=== PATIENT | male | born 1955 | race Caucasian/White ===

== ENCOUNTER 2019-03-31 11:44 | Emergency (ER) | payer BC ==
[~2019-03-31] VITALS: Ht 154.9 cm; Wt 66.7 kg
--- NOTE | 2019-03-31 11:48 | NUR ---
Patient to ER bed 06 to gown for evaluation. Side rails up. Report given to Nesha PELLETIER.
--- NOTE | 2019-03-31 11:52 | NUR ---
pt reports abd pain 2/10 starting at 4 AM and vomiting x3. in no acute distress.
[2019-03-31 11:57] VITALS: BP_SYST 121
--- NOTE | 2019-03-31 12:09 | NUR ---
ER at bedside examining patient.
--- NOTE | 2019-03-31 12:20 | NUR ---
Patient ambulated to radiology via , accompanied by Kiyon.
--- NOTE | 2019-03-31 12:28 | NUR ---
pt returned from radiology, accompanied by staff.
[2019-03-31] MEDS ORDERED: NACL 0.9% 1,000 ML IV ONE (13:00)
[2019-03-31] MEDS ORDERED: ONDANSETRON HCL 4 MG/2 ML VIAL IVP ONE ×2 (13:00→15:30)
--- NOTE | 2019-03-31 13:23 | NUR ---
# 22 gauge angiocath placed to LAC. Use of asceptic technique. Opsite placed over site. Blood return noted. Blood for lab drawn from site. Flushed with 10 cc of normal saline. No evidence of infiltration noted. Patient tolerated well.
[2019-03-31 13:38] LABS: BASOPHILS % (AUTO) 0.1 % (0.0-2.0); HEMATOCRIT 45.9 % (36-54); HEMOGLOBIN 15.4 g/dL (14.0-18.0); LYMPHOCYTES # (AUTO) 0.7 K/uL (1.0-5.5); LYMPHOCYTES % (AUTO) 6.5 % (20.5-51.5); MEAN CORPUSCULAR HEMOGLOBIN 31 pg (27-31); MEAN CORPUSCULAR HGB CONC 34 % (32-36); MEAN CORPUSCULAR VOLUME 92 fL (79.0-98.0); MONOCYTES # (AUTO) 0.2 K/uL (0.0-1.0); MONOCYTES % (AUTO) 2.4 % (1.7-9.3); NEUTROPHILS # (AUTO) 9.4 K/uL (1.8-7.7); PLATELET COUNT (AUTO) 224 K/uL (130-430); RED BLOOD CELL COUNT(AUTO) 5.01 MIL/uL (4.2-6.2); RED CELL DISTRIBUTION WIDTH 13.5 % (9.0-15.0); WHITE BLOOD COUNT (AUTO) 10.4 K/uL (4.8-10.8)
[2019-03-31 13:49] LABS: CALCIUM 9.3 mg/dL (8.4-11.0); CHLORIDE 103 mmol/L (98-107); CREATININE 1.14 mg/dL (0.55-1.30); GLUCOSE 107 mg/dL (70-99); POTASSIUM 4.4 mmol/L (3.5-5.1); SODIUM SERUM 132 mmol/L (136-145); UREA NITROGEN, BLOOD 15 mg/dL (8-21)
[2019-03-31 13:52] LABS: ANION GAP < 3 (5-15); GFR AFRICAN AMERICAN 84 mL/min (>90)
[2019-03-31 13:55] LABS: ALANINE AMINOTRANSFERASE 25 U/L (12-78); ALBUMIN 4.3 g/dL (3.4-4.8); ASPARTATE AMINOTRANSFERASE 20 U/L (10-37); LIPASE 150 U/L (73-393); TOTAL BILIRUBIN 0.8 mg/dL (0.0-1.0)
--- NOTE | 2019-03-31 14:04 | NUR ---
med recon updated. Pt does not take any home meds.
--- NOTE | 2019-03-31 14:08 | NUR ---
belongings inventory done
[2019-03-31 14:20] LABS: BILIRUBIN,URINE NEGATIVE (NEGATIVE); BLOOD, URINE NEGATIVE (NEGATIVE); CLARITY/URINE CLEAR (CLEAR); COLOR,URINE YELLOW (YELLOW); GLUCOSE,URINE NEGATIVE (NEGATIVE); KETONES,URINE 2+ (NEGATIVE); LEUKOCYTE ESTERASE ,URINE NEGATIVE (NEGATIVE); NITRITE, URINE NEGATIVE (NEGATIVE); PROTEIN URINE TRACE (NEGATIVE)
[2019-03-31 14:41] LABS: BACTERIA,URINE RARE /HPF (None Seen); MUCUS,URINE None Seen /LPF (None Seen); RBC,URINE NONE SEEN /HPF (0-3); WBC,URINE NONE SEEN /HPF (0-3)
--- NOTE | 2019-03-31 15:00 | NUR ---
medicated the pt w/ Mag Citrate per MD order.
[2019-03-31] MEDS ORDERED: MAGNESIUM CITRATE 300 ML ORAL SOLUTION PO ONE (15:30)
--- NOTE | 2019-03-31 16:25 | NUR ---
Pt assisted to bedside commode.
--- NOTE | 2019-03-31 17:31 | NUR ---
Note undone in EDM - 03/31/19 at 1741 by EPHRAIM Patient given written and verbal discharge instructions and verbalizes understanding. ER discussed with patient the results and treatment provided. Patient in stable condition. ID arm band removed. IV catheter removed intact and dressing applied, no active bleeding.Rx of mineral oil and Lactulose given. Patient educated on pain management and to follow up with PMD. Pain Scale 0/10.Opportunity for questions provided and answered. Medication side effect fact sheet provided.
--- NOTE | 2019-03-31 17:40 | NUR ---
Patient given written and verbal discharge instructions and verbalizes understanding. ER MD discussed with patient the results and treatment provided. Patient in stable condition. ID arm band removed. IV catheter removed intact and dressing applied, no active bleeding.Rx of Lactulose and Mineral oil given. Patient educated on pain management and to follow up with PMD. Pain Scale 0/10.Opportunity for questions provided and answered. Medication side effect fact sheet provided.
[2019-03-31 17:43] VITALS: BP_SYST 123
== END 2019-03-31 17:40 | disposition home or self-care (01) ==
LOC: SED 11:44
DX: K59.00 Constipation, unspecified (principal); R11.10 Vomiting, unspecified
CPT/HCPCS: 36415; 71045; 74021; 74176; 80053; 81000; 83605; 83690; 84484; 85025; 85610; 85730; 87040; 87086; 93005; 96361; 96374; 96376; 99284; J2405; J7030

== ENCOUNTER 2021-04-28 00:25 | Inpatient (IN) | payer BC, SELFPAY ==
[~2021-04-28] VITALS: Ht 180.3 cm; Wt 65.8 kg
[2021-04-28 00:35] VITALS: BP_SYST 121
--- NOTE | 2021-04-28 00:45 | NUR ---
Patient to ER bed 7 to gown for evaluation. Side rails up.
--- NOTE | 2021-04-28 00:48 | NUR ---
Dr. [facility] pt eval
--- NOTE | 2021-04-28 00:49 | NUR ---
PT BIB FAMILY TO ED C/O +LOWER ABDOMINAL PAIN WITH N/V SINCE THURSDAY DENIES DIARRHEA, NO PAIN MEDS TAKEN VSS NO S/S OF ACUTE DISTRESS RESTING ON GURNEY RAILS UP
[2021-04-28] MEDS ORDERED: KETOROLAC TROMETHAMINE 30 MG VIAL IVP ONE (01:15)
[2021-04-28] MEDS ORDERED: ONDANSETRON HCL 4 MG/2 ML VIAL IVP ONE (01:15)
[2021-04-28] MEDS ORDERED: NACL 0.9% 1,000 ML IV ONE ×2 (01:15→02:30)
--- NOTE | 2021-04-28 01:26 | NUR ---
Pt went to and from Radiology, well tolerated
[2021-04-28 01:30] LABS: BILIRUBIN,URINE NEGATIVE (NEGATIVE); CLARITY/URINE CLEAR (CLEAR); COLOR,URINE YELLOW (YELLOW); GLUCOSE,URINE NEGATIVE (NEGATIVE); KETONES,URINE 3+ (NEGATIVE); LEUKOCYTE ESTERASE ,URINE NEGATIVE (NEGATIVE); NITRITE, URINE NEGATIVE (NEGATIVE); PROTEIN URINE NEGATIVE (NEGATIVE); UROBILINOGEN,URINE 0.2 (0.2-1.0)
--- NOTE | 2021-04-28 01:34 | NUR ---
IV meds well tolerated
[2021-04-28 01:50] LABS: CALCIUM 10.1 mg/dL (8.4-11.0); CREATININE 1.64 mg/dL (0.55-1.30)
[2021-04-28 01:50] LABS: BLOOD, URINE TRACE (NEGATIVE)
[2021-04-28 01:56] LABS: ALBUMIN 4.3 g/dL (3.4-4.8); TOTAL BILIRUBIN 1.2 mg/dL (0.0-1.0)
[2021-04-28] MEDS ORDERED: cefTRIAXone 1 GM IVPB PREMIX 50 ML IV ONE (02:15)
[2021-04-28 02:21] LABS: BASOPHILS % (AUTO) 0.1 % (0.0-2.0); HEMATOCRIT 45.2 % (36-54); HEMOGLOBIN 15.1 g/dL (14.0-18.0); LYMPHOCYTES # (AUTO) 0.8 K/uL (1.0-5.5); LYMPHOCYTES % (AUTO) 6.7 % (20.5-51.5); MEAN CORPUSCULAR HEMOGLOBIN 30 pg (27-31); MEAN CORPUSCULAR HGB CONC 34 % (32-36); MEAN CORPUSCULAR VOLUME 90 fL (79.0-98.0); MONOCYTES # (AUTO) 0.7 K/uL (0.0-1.0); MONOCYTES % (AUTO) 6.1 % (1.7-9.3); NEUTROPHILS # (AUTO) 10.3 K/uL (1.8-7.7); NEUTROPHILS % (AUTO) 87.1 % (40.0-70.0); PLATELET COUNT (AUTO) 213 K/uL (130-430); RED BLOOD CELL COUNT(AUTO) 5.04 MIL/uL (4.2-6.2); RED CELL DISTRIBUTION WIDTH 13.3 % (9.0-15.0); WHITE BLOOD COUNT (AUTO) 11.9 K/uL (4.8-10.8)
--- NOTE | 2021-04-28 03:20 | NUR ---
Patient will be admitted to care of WILLIAM. Admitted to TELE unit. PENDING ROOM ASSIGNMENT. Belongings list completed. Complete and up to date summary report printed. SBAR report to be given at bedside with opportunity for questions.
--- NOTE | 2021-04-28 03:21 | NUR ---
Medication reconciliation completed with information provided by PATIENT. PT DENIES TAKING ANY MEDICATION AT HOME.
--- NOTE | 2021-04-28 03:24 | NUR ---
Patient's code status is FULL CODE paperwork completed and placed in chart.
[2021-04-28] MEDS ORDERED: HYDROcodone/ACETAMIN 5-325 MG TAB (NORCO/ VICODIN) PO PRN (03:45)
[2021-04-28] MEDS: NACL 0.9% 1,000 ML IV SCH ×3 (04:19→18:17)
--- NOTE | 2021-04-28 04:19 | NUR ---
COVID SWAB COLLECTED AND SENT TO LAB.
--- NOTE | 2021-04-28 05:37 | NUR ---
Patient resting quietly. No acute distress noted. Vital signs within normal range.
--- NOTE | 2021-04-28 07:00 | NUR ---
Assumed care of pt from franklin PELLETIER. Pt stable awaiting telemetry bed on unit.
--- NOTE | 2021-04-28 08:00 | NUR ---
Provided breakfast tray. Pt sat up at bedside.
[2021-04-28] MEDS: TAMSULOSIN HCL 0.4 MG CAP PO SCH (09:17)
--- NOTE | 2021-04-28 09:55 | NUR ---
Pt sitting up in bed watching television in no distress. Pt v/s stable.
--- NOTE | 2021-04-28 10:40 | NUR ---
Dr. Curtis at bedside to evaluate.
[2021-04-28] MEDS ORDERED: LORazepam 2 MG/ML VIAL IVP PRN (10:45)
[2021-04-28] MEDS ORDERED: POTASSIUM CHLORIDE 40 MEQ, LIDOCAINE JECT 2% PF 100 MG 50 MG in NS 250 ML IV PRN (10:45)
[2021-04-28] MEDS ORDERED: ONDANSETRON HCL 4 MG/2 ML VIAL IVP PRN (10:45)
[2021-04-28] MEDS ORDERED: MAGNESIUM SULFATE 50 ML IV PRN (10:45)
--- NOTE | 2021-04-28 10:50 | NUR ---
NOTES: pt. awake, on high fowlers position, at bedside. IVF infusing via left arm @ 150 cc/hr. on nuclear monitoring technician and shows sinus rhythm. urine specimen needed for culture and drug screen. Addendum: 04/29/21 at 0352 by Kirstin Rosa RN wrong time 04/29/21 Vasiliy
[2021-04-28 11:34] LABS: THYROID STIMULATING HORMONE 1.1 uIu/mL (0.36-3.74)
--- NOTE | 2021-04-28 11:50 | NUR ---
Family member at bedside to visit. Pt still awaiting Tele bed assignment. Lunch ordered.
--- NOTE | 2021-04-28 12:00 | NUR ---
Hospital bed ordered. Pt continues to hold in the ER.
--- NOTE | 2021-04-28 13:05 | NUR ---
Patient will be admitted to care of Dr. Curtis . Admitted to Tele unit. Will go to room 129A. Belongings list completed. Complete and up to date summary report printed. SBAR report to be given at bedside with opportunity for questions.
--- NOTE | 2021-04-28 13:10 | NUR ---
Transfer to Tele via ACLS protocol. Licensed nurse present. IV present no signs or symptoms of infiltration.
--- NOTE | 2021-04-28 13:44 | NUR ---
CONSULTATION PAGED REASON FOR CONSULTATION:LEFT KIDNEY STONE WAS CONSULT CALLED?Y PERSON WHO WAS NOTIFIED:SAMSON WADE CONSULTING PHYSICIAN:SAMSON WADE [employer]IONICS ELECTRICAL ENGINEER SPECIALTY:UROLOGY AVIONICS ELECTRICAL ENGINEER PHONE NUMBER:[phone] REQUESTING PHYSICIAN:FELICITY SARAH
[2021-04-28 13:57] VITALS: BP_SYST 97
--- NOTE | 2021-04-28 13:58 | NUR ---
ADMIT NOTE LATE ENTRY 1335 Received pt from ER to the floor with a diagnosis of KIDNEY STONES. Admission process initiated. patient oriented to pain management, safety and call light-teach back done.
[2021-04-28 15:12] VITALS: BP_SYST 97
[2021-04-28 16:05] VITALS: BP_SYST 96
--- NOTE | 2021-04-28 16:26 | NUR ---
Rounds Patient denies pain at this time. Seen by Dr Sal Harris and MD discussed to patient plan of care. patient and Stacia verbalized understanding. Voided and strained urine. encouraged to increase oral fluid intake
--- NOTE | 2021-04-28 18:49 | NUR ---
Closing Instructed on collection of clean catch urine for urine culture. verbalized understanding. denies pain at this time
--- NOTE | 2021-04-28 19:15 | NUR ---
CHANGE OF SHIFT; endorsed by day shift, new admission for left kidney stone. no distress. call light within reach.
--- NOTE | 2021-04-28 20:15 | NUR ---
NOTES: pt. voided and strain urine, no stone. sent urine for culture and drug screen.
[2021-04-28 20:26] LABS: BILIRUBIN,URINE NEGATIVE (NEGATIVE); BLOOD, URINE NEGATIVE (NEGATIVE); CLARITY/URINE CLEAR (CLEAR); COLOR,URINE YELLOW (YELLOW); GLUCOSE,URINE NEGATIVE (NEGATIVE); KETONES,URINE TRACE (NEGATIVE); LEUKOCYTE ESTERASE ,URINE NEGATIVE (NEGATIVE); NITRITE, URINE NEGATIVE (NEGATIVE); PROTEIN URINE NEGATIVE (NEGATIVE); UROBILINOGEN,URINE 0.2 (0.2-1.0)
[2021-04-28 20:36] LABS: BARBITURATE, URINE NEGATIVE (NEG <=200); BENZODIAZEPINE, URINE NEGATIVE (NEG <=150); CANNABINOID, URINE NEGATIVE (NEG <=50); COCAINE, URINE NEGATIVE (NEG <=150); METHAMPHETAMINES SCREEN,URINE NEGATIVE (NEG <=500); OPIATE, URINE NEGATIVE (NEG <=100); PHENCYCLIDINE SCREEN,URINE NEGATIVE (NEG <=25); UR TRICYCLIC ANTIDEPRESSANTS NEGATIVE (NEG <=300); URINE AMPHETAMINE NEGATIVE (NEG <=500); URINE METHADONE NEGATIVE (NEG <=200); URINE OXYCODONE SCREEN NEGATIVE (NEG <=100); URINE PROPOXYPHENE SCREEN NEGATIVE (NEG <=300)
--- NOTE | 2021-04-28 20:51 | NUR ---
NOTES: pt. medicated for c/o lower abdominal pain with [place] po.
[2021-04-29] MEDS: NACL 0.9% 1,000 ML IV SCH ×4 (00:10→20:12)
[2021-04-29 00:13] VITALS: BP_SYST 92
--- NOTE | 2021-04-29 00:15 | NUR ---
NOTES: pt. awakened and VS checked. IVF continuous. no further complaint at this time.
--- NOTE | 2021-04-29 03:55 | NUR ---
NOTES: condition observed. continue to monitor.
[2021-04-29 06:19] LABS: BASOPHILS % (AUTO) 0.2 % (0.0-2.0); EOSINOPHILS # (AUTO) 0.1 K/uL (0.0-0.4); EOSINOPHILS % (AUTO) 0.8 % (0.0-4.0); HEMOGLOBIN 11.4 g/dL (14.0-18.0); LYMPHOCYTES # (AUTO) 0.9 K/uL (1.0-5.5); LYMPHOCYTES % (AUTO) 10.3 % (20.5-51.5); MEAN CORPUSCULAR HEMOGLOBIN 30 pg (27-31); MEAN CORPUSCULAR HGB CONC 34 % (32-36); MEAN CORPUSCULAR VOLUME 90 fL (79.0-98.0); MONOCYTES # (AUTO) 0.7 K/uL (0.0-1.0); MONOCYTES % (AUTO) 8.1 % (1.7-9.3); NEUTROPHILS # (AUTO) 7.3 K/uL (1.8-7.7); NEUTROPHILS % (AUTO) 80.6 % (40.0-70.0); PLATELET COUNT (AUTO) 164 K/uL (130-430); RED BLOOD CELL COUNT(AUTO) 3.76 MIL/uL (4.2-6.2); RED CELL DISTRIBUTION WIDTH 13.4 % (9.0-15.0); WHITE BLOOD COUNT (AUTO) 9.1 K/uL (4.8-10.8)
[2021-04-29 06:39] LABS: ALBUMIN 2.6 g/dL (3.4-4.8); CALCIUM 7.4 mg/dL (8.4-11.0); CREATININE 1.9 mg/dL (0.55-1.30); PHOSPHORUS 2.8 mg/dL (2.7-4.5); POTASSIUM 3.8 mmol/L (3.5-5.1); TOTAL BILIRUBIN 0.7 mg/dL (0.0-1.0)
--- NOTE | 2021-04-29 06:43 | NUR ---
CLOSING NOTES; pt. condition observed . strained urine , no stones noted. IVF continuous, no further complaint. for further care and observation. call light within reach.
[2021-04-29 08:00] VITALS: BP_SYST 101
[2021-04-29] MEDS: cefTRIAXone 1 GM IVPB PREMIX 50 ML IV SCH (09:34)
[2021-04-29] MEDS: TAMSULOSIN HCL 0.4 MG CAP PO SCH (09:34)
[2021-04-29] MEDS: ENOXAPARIN SODIUM 40 MG/0.4 ML SYRINGE SUBCUT SCH (09:35)
--- NOTE | 2021-04-29 12:26 | NUR ---
consult called called Dr. Pérez for consult DX: STEVE, spoke with Kiah
--- NOTE | 2021-04-29 12:46 | NUR ---
PER , DRAIN ALL URINES, TAUGHT HOW TO DRAIN IT " FELT UNCOMFORTABLE, BUT NOT PAIN", NO NEEDS FOR PAIN MEDS SEEN BY DR THOMAS, NEPHROLOGY CONSULT CALLED. ( BUN/CR TODAY )
[2021-04-29] MEDS ORDERED: SIMETHICONE 80 MG TAB.CHEW PO PRN (13:00)
[2021-04-29 15:26] VITALS: BP_SYST 102
[2021-04-29 17:43] VITALS: BP_SYST 101
--- NOTE | 2021-04-29 17:45 | NUR ---
UNEVENTFUL DAY, DRAINED ALL URINE, SELF. NO STONE NOTED SEEN BY ROBOTICS ENGINEER, NO NEW ORDERS WRITTEN, DENIED ANY PAIN ON URINATION, CONTINUES WITH IVF INSTRUCTED
[2021-04-29] MEDS: MORPHINE 2 MG/ML INJ. SYRINGE IVP PRN (20:14)
[2021-04-29 21:00] VITALS: BP_SYST 117
--- NOTE | 2021-04-29 21:15 | NUR ---
MORPHINE SULFATE 2 MG IVP ADMINISTER FOR ACUTE PAIN GENERAL & HELPFUL , off loading with pillows also used , position change encouraged .
--- NOTE | 2021-04-29 22:42 | NUR ---
CONSULTATION CALLED FOR DR. KILLIAN FOR CONSULT OF STEVE ORDER BY DR. THOMAS SPOKE WITH TAMIA
--- NOTE | 2021-04-30 | NUR ---
ZOFRAN 4 MG IVP administer for GI upset & helpful / .
[2021-04-30 02:00] VITALS: BP_SYST 112
[2021-04-30] MEDS: NACL 0.9% 1,000 ML IV SCH (03:10)
--- NOTE | 2021-04-30 03:11 | NUR ---
HOURLY Rounding patient Resting call hernández with patient Respirations Remain Regular also unlabored PT is verbally Responsive .
--- NOTE | 2021-04-30 03:20 | NUR ---
Patient using bedside urinal / encouraged oral fluid intake strain voided urine , no stones noted continue to monitor .
[2021-04-30] MEDS: MORPHINE 2 MG/ML INJ. SYRINGE IVP PRN ×2 (04:53→08:47)
[2021-04-30 05:39] LABS: BASOPHILS % (AUTO) 0.3 % (0.0-2.0); EOSINOPHILS # (AUTO) 0.1 K/uL (0.0-0.4); EOSINOPHILS % (AUTO) 0.9 % (0.0-4.0); HEMATOCRIT 35.2 % (36-54); HEMOGLOBIN 11.9 g/dL (14.0-18.0); LYMPHOCYTES # (AUTO) 1.4 K/uL (1.0-5.5); LYMPHOCYTES % (AUTO) 16.4 % (20.5-51.5); MEAN CORPUSCULAR HEMOGLOBIN 31 pg (27-31); MEAN CORPUSCULAR HGB CONC 34 % (32-36); MEAN CORPUSCULAR VOLUME 90 fL (79.0-98.0); MONOCYTES # (AUTO) 0.8 K/uL (0.0-1.0); MONOCYTES % (AUTO) 9.6 % (1.7-9.3); NEUTROPHILS # (AUTO) 6.2 K/uL (1.8-7.7); NEUTROPHILS % (AUTO) 72.8 % (40.0-70.0); PLATELET COUNT (AUTO) 169 K/uL (130-430); RED BLOOD CELL COUNT(AUTO) 3.91 MIL/uL (4.2-6.2); RED CELL DISTRIBUTION WIDTH 13.3 % (9.0-15.0); WHITE BLOOD COUNT (AUTO) 8.5 K/uL (4.8-10.8)
--- NOTE | 2021-04-30 05:59 | NUR ---
CONTINUE TO STRAIN URINE NO STONES NOTED , MONITOR .
[2021-04-30 06:07] LABS: ALBUMIN 2.8 g/dL (3.4-4.8); CALCIUM 8.5 mg/dL (8.4-11.0); CREATININE 1.6 mg/dL (0.55-1.30); PHOSPHORUS 3.1 mg/dL (2.7-4.5); POTASSIUM 3.6 mmol/L (3.5-5.1); TOTAL BILIRUBIN 0.9 mg/dL (0.0-1.0)
[2021-04-30 08:00] VITALS: BP_SYST 103
--- NOTE | 2021-04-30 08:00 | NUR ---
patient alert,awake, orientedx4, c/o abdominal pain 7/10 scale, informed pain medication will be ready 0850am. pt verbalized understanding. updated about the current ordered and poc.
[2021-04-30] MEDS ORDERED: TRAM50TA2 PO (08:01)
[2021-04-30] MEDS ORDERED: TAMS-11 PO (08:01)
--- NOTE | 2021-04-30 08:30 | NUR ---
CARDIO CONSULT: DR. CARDENAS MADE ROUNDS S/W PATIENT AND DISCUSS ABOUT THE POC. PER CARDIOLOGY STANDPOINT.PT CLEARED FOR DISCHARGE. Addendum: 04/30/21 at 0902 by Mahi Terry RN PLEASE DISCHARGE WRONG ENTRY OF DOCTOR NAME.
[2021-04-30] MEDS: cefTRIAXone 1 GM IVPB PREMIX 50 ML IV SCH (08:41)
[2021-04-30] MEDS: TAMSULOSIN HCL 0.4 MG CAP PO SCH (08:41)
[2021-04-30] MEDS: ENOXAPARIN SODIUM 40 MG/0.4 ML SYRINGE SUBCUT SCH (08:49)
[2021-04-30 09:04] VITALS: BP_SYST 103
--- NOTE | 2021-04-30 10:10 | NUR ---
D/C Patient Patient given medication reconciliation form and D/C instructions. Exit Care provided. Patient verbalized understanding. MD discussed with patient the results and treatment provided. Ambulatory with steady gait for discharge to home. Patient in stable condition, ID band removed. IV catheter removed, intact and dressing applied, no active bleeding. Rx of tramadol, flomax given. Patient educated on pain management. All belongings sent with patient.
== END 2021-04-30 10:10 | disposition home or self-care (01) | DRG 391 ==
LOC: SED 00:25 → STU 03:35
DX: K57.90 Diverticulosis of intestine, part unspecified, without perforation or abscess without bleeding (principal); E43 Unspecified severe protein-calorie malnutrition; N17.0 Acute kidney failure with tubular necrosis; N13.6 Pyonephrosis; Z20.822 Contact with and (suspected) exposure to COVID-19; F10.10 Alcohol abuse, uncomplicated; Y90.9 Presence of alcohol in blood, level not specified; E86.0 Dehydration; Z68.20 Body mass index [BMI] 20.0-20.9, adult
CPT/HCPCS: 36415; 76376; 80053; 80307; 81003; 83036; 83605; 83735; 83880; 84100; 84439; 84443; 85025; 87040-TC; 87086; 96365; 96375; 99285; G0378; J0696; J1650; J1885; J2270; J2405

== ENCOUNTER 2021-05-02 15:36 | Emergency (ER) | payer BC, SELFPAY ==
[~2021-05-02] VITALS: Ht 175.3 cm; Wt 65.8 kg
[2021-05-02 15:36] VITALS: BP_SYST 111
[~2021-05-02 15:36] MED LIST: TAMS-11 PO; TRAM50TA2 PO
--- NOTE | 2021-05-02 15:36 | NUR ---
BROUGHT BACK TO BED #5 AND TRIAGED. REPORT GIVEN TO PORSCHE
--- NOTE | 2021-05-02 15:50 | NUR ---
Per report received, patient reporting constipation due to narcotic usage for a kidney stone. Patient awake, alert and oriented x 3. VSS. Will continue to monitor.
--- NOTE | 2021-05-02 15:52 | NUR ---
ER at bedside examining patient.
--- NOTE | 2021-05-02 16:09 | NUR ---
Xray being done at bedside
[2021-05-02] MEDS ORDERED: MAGNESIUM CITRATE 300 ML ORAL SOLUTION PO ONE (16:15)
[2021-05-02] MEDS ORDERED: DOCU-144 PO (16:16)
[2021-05-02 16:25] VITALS: BP_SYST 111
--- NOTE | 2021-05-02 16:31 | NUR ---
Patient given written and verbal discharge instructions and verbalizes understanding. ER MD discussed with patient the results and treatment provided. Patient in stable condition. ID arm band removed. Rx of Docusate Sodium given. Patient also given a bottle of Mag Citrate for home use. Patient educated on pain management and to follow up with PMD. Pain scale 0/10. Opportunity for questions provided and answered.
== END 2021-05-02 16:31 | disposition home or self-care (01) ==
LOC: SED 15:36
DX: K59.00 Constipation, unspecified (principal); Z79.899 Other long term (current) drug therapy
CPT/HCPCS: 74018; 99283

== ENCOUNTER 2021-05-16 14:21 | Outpatient (CLI) | payer BC ==
[~2021-05-16 14:21] MED LIST changes: +DOCU-144 PO
== END 2021-05-16 20:40 | disposition home or self-care (01) ==
LOC: SCT 14:21
PROVIDERS: ATTEND Urology
DX: N20.0 Calculus of kidney (principal); N28.1 Cyst of kidney, acquired; K76.89 Other specified diseases of liver; K57.30 Diverticulosis of large intestine without perforation or abscess without bleeding; K63.89 Other specified diseases of intestine; N28.89 Other specified disorders of kidney and ureter
CPT/HCPCS: 76376

== ENCOUNTER 2021-06-19 09:11 | Outpatient (CLI) | payer BC | END 2021-06-19 21:29 | disposition home or self-care (01) | LOC: SUS 09:11 | PROVIDERS: ATTEND Urology | DX: N28.1 Cyst of kidney, acquired (principal); N20.0 Calculus of kidney | CPT/HCPCS: 76770 ==